=== PATIENT | female | born 1970 | race Caucasian/White ===

== ENCOUNTER 2016-10-22 17:07 | Emergency (ER) | payer MEDICARE ==
[~2016-10-22 17:07] MED LIST: AUGMENTIN 875-1 EACH PO; AUGMENTIN TAB875 MG PO; DAKIN'S SOLUTI500 ML TP; FERROUS SULFAT325 M2 PO; KLONOPIN1 MG PO; MS CONTIN30 MG PO; MULTIVITAMINS1 EAC1 PO; PROZAC40 MG PO; ROXICODONE15 MG PO; SYNTHROID125 MCG PO; VITAMIN D2000 UNI1 PO; ZANAFLEX4 MG PO
[2016-10-22 20:27] LABS: HEMOGLOBIN 13.3 gm/dl (12.3-15.3); RED BLOOD COUNT 4.82 M/UL (4.00-5.10)
[2016-10-22 20:45] LABS: BUN/CREATININE RATIO 14 (0-10)
[2016-12-15] MEDS ORDERED: EFFEXOR XR 75 M75 MG PO (04:05)
[2016-12-15] MEDS ORDERED: ELAVIL 50 MG TA50 MG PO (04:05)
[2016-12-16] MEDS ORDERED: LORTAB 5-325 M1 EACH PO (10:54)
== END 2016-10-22 23:57 | disposition home or self-care (01) ==
LOC: ER1 17:07
PROVIDERS: Specialist/Technologist Athletic Trainer
DX: L02.413 Cutaneous abscess of right upper limb (principal); L03.113 Cellulitis of right upper limb; Z90.49 Acquired absence of other specified parts of digestive tract
CPT/HCPCS: 10061; 36415; 73110; 80053; 83605; 85025; 87040; 96365; 96366; 99283; J0875; J7070

== ENCOUNTER 2017-03-15 10:40 | Emergency (ER) | payer MEDICARE ==
[~2017-03-15 10:40] MED LIST changes: +EFFEXOR XR 75 M75 MG PO; +ELAVIL 50 MG TA50 MG PO; +LORTAB 5-325 M1 EACH PO
== END 2017-03-15 13:30 | disposition home or self-care (01) ==
LOC: ER1 10:40
DX: M51.36 Other intervertebral disc degeneration, lumbar region (principal); G89.29 Other chronic pain; F17.200 Nicotine dependence, unspecified, uncomplicated; Z90.49 Acquired absence of other specified parts of digestive tract
CPT/HCPCS: 72131; 81001; 87086; 96372; 99284; J1100; J1885